=== PATIENT | female | born 1965 | race Caucasian/White ===

== ENCOUNTER 2019-08-26 08:08 | Inpatient (IN) | payer MEDICAID, OTHER ==
[~2019-08-26] VITALS: Ht 180.3 cm; Wt 136.1 kg
--- NOTE | 2019-08-26 08:25 | NUR ---
PATIENT IN ROOM 5. SHE IS AWAKE AND ALERT. C/O ABDOMINAL PAIN.
[2019-08-26] MEDS ORDERED: HYDROMORPHONE 1 MG/1 ML DISP.SYRIN IV ONE ×2 (08:30→10:30)
[2019-08-26] MEDS ORDERED: ONDANSETRON 4 MG/2 ML VIAL IV ONE (08:30)
[2019-08-26] MEDS ORDERED: ONDANSETRON 4 MG/2 ML VIAL ONE (08:40)
[2019-08-26] MEDS ORDERED: HYDROMORPHONE 1 MG/1 ML DISP.SYRIN ONE ×2 (08:40→10:26)
[2019-08-26 08:57] LABS: BASOPHILS # (AUTO) 0.1 K/uL (0.0-8.0); BASOPHILS % (AUTO) 0.7 % (0.0-2.0); EOSINOPHILS % (AUTO) 0.3 % (0.0-7.0); HEMATOCRIT 39.1 % (31.2-41.9); HEMOGLOBIN 13.1 g/dL (10.9-14.3); LYMPHOCYTES # (AUTO) 1.1 K/uL (20.0-40.0); LYMPHOCYTES % (AUTO) 7.9 % (20.5-51.5); MEAN CORPUSCULAR HEMOGLOBIN 27.2 uug (24.7-32.8); MEAN CORPUSCULAR HGB CONC 34 g/dL (32.3-35.6); MEAN CORPUSCULAR VOLUME 81.3 fL (75.5-95.3); MONOCYTES # (AUTO) 0.5 K/uL (2.0-10.0); MONOCYTES % (AUTO) 3.8 % (0.0-11.0); NEUTROPHILS # (AUTO) 12.4 K/uL (1.8-8.9); NEUTROPHILS % (AUTO) 87.3 % (38.5-71.5); PLATELET COUNT (AUTO) 303 K/uL (179-408); RED BLOOD CELL COUNT(AUTO) 4.81 MIL/uL (3.63-4.92); WHITE BLOOD COUNT (AUTO) 14.2 K/uL (3.8-11.8)
[2019-08-26 08:58] LABS: CREATININE 0.8 mg/dL (0.6-1.3); POTASSIUM 3.7 mmol/L (3.5-5.1)
[2019-08-26 09:04] LABS: BILIRUBIN,DIRECT 0.2 mg/dL (0.0-0.2); BILIRUBIN,TOTAL 0.8 mg/dL (0.2-1.0)
[2019-08-26 09:05] LABS: TOTAL PROTEIN, SERUM 7.2 g/dL (6.4-8.2)
[2019-08-26] MEDS ORDERED: IV NORMAL SALINE 1000 ML BAG IV ONE (09:15)
[2019-08-26 09:20] LABS: *BILIRUBIN,URIN NEGATIVE (NEGATIVE); *CLARITY,URINE CLEAR (CLEAR); *COLOR,URINE YELLOW (YELLOW); *KETONES,URINE NEGATIVE (NEGATIVE); *UROBILINOGEN,URINE 0.2 E.U./dl (NORMAL); LEUKOCYTE ESTERASE ,URINE NEGATIVE (NEGATIVE); NITRITE, URINE NEGATIVE (NEGATIVE); UGLUCOSE NEGATIVE (NEGATIVE)
[2019-08-26 09:30] LABS: *BLOOD, URINE NEGATIVE (NEGATIVE)
--- NOTE | 2019-08-26 09:40 | NUR ---
CALL FOR BED DONE, WAITING FOR CALL BACK FR [employer] FOR BED AVAILABILITY
--- NOTE | 2019-08-26 09:55 | NUR ---
PATIENT STATES PAIN AND NAUSEA HAVE DIMINISHED.
[2019-08-26] MEDS ORDERED: LEVOFLOXACIN 500 MG/D5W 100ML PIGGYBACK IV ONE (10:30)
[2019-08-26] MEDS ORDERED: METRONIDAZOLE 500 MG/NS 100 ML PIGGYBACK IV ONE (10:30)
--- NOTE | 2019-08-26 10:33 | NUR ---
PATIENT AWARE OF PENDING ADMISSION TO [facility]. REPORT GIVEN TO MIKHAIL SANDOVAL. PATIENT REMAINS NPO.
[2019-08-26] MEDS ORDERED: METRONIDAZOLE 500 MG/NS 100ML 100 ML IV ONE (10:35)
--- NOTE | 2019-08-26 10:47 | NUR ---
STEPHANIE STARTED IN ER. LEVAQUIN WILL BE RE-ORDERD BY FREIDA LEE ON [facility]LO[facility]. MIKHAIL SANDOVAL AWARE.
--- NOTE | 2019-08-26 10:48 | NUR ---
PaTIENT STATES NAUSEA HAS DIMINISHED.
[2019-08-26 11:21] VITALS: BP 130/75
[2019-08-26 11:45] VITALS: BP 130/75
[2019-08-26] MEDS ORDERED: ONDANSETRON 4 MG/2 ML VIAL IV PRN (11:45)
[2019-08-26] MEDS ORDERED: MAGNESIUM HYDROXIDE 30 ML LIQUID UDC PO PRN (11:45)
[2019-08-26] MEDS ORDERED: PIPERACILLIN SODIUM/TAZOBACTAM 3.375 G in IV DEXTROSE 5% 50 ML IV SCH (12:00)
[2019-08-26] MEDS: IV NS 1000 ML 1,000 ML IV PRN (15:21)
[2019-08-26] MEDS: CIPROFLOXACIN IV 400 MG in PREMIXED 1 EACH IV SCH (15:21)
[2019-08-26 15:30] VITALS: BP 118/54
[2019-08-26] MEDS: MORPHINE SULFATE 2 MG/1 ML DISP.SYRIN IV PRN ×2 (16:34→20:50)
[2019-08-26] MEDS: METRONIDAZOLE 500 MG/NS 100ML 500 MG in PREMIXED 1 EACH IV SCH ×2 (18:23→21:14)
--- NOTE | 2019-08-26 19:50 | NUR ---
RECEIVED PT AWAKE, ALERT AND ORIENTEDX4. PT IN NO ACUTE DISTRESS. IV INTACT. SAFETY AND COMFORT PROVIDED. PAIN MANAGEMENT DONE. WILL CONTINUE TO MONITOR.
[2019-08-26 22:14] VITALS: BP 140/74
[2019-08-27] MEDS: ZOLPIDEM 5 MG TABLET PO PRN (00:43)
[2019-08-27] MEDS: ACETAMINOPHEN 325 MG TABLET PO PRN (00:43)
[2019-08-27] MEDS: CIPROFLOXACIN IV 400 MG in PREMIXED 1 EACH IV SCH ×2 (00:44→12:09)
[2019-08-27 05:12] VITALS: BP 103/53
--- NOTE | 2019-08-27 05:20 | NUR ---
PT SLEPT INTERMITTENTLY. PT IN NO ACUTE DISTRESS. IV INTACT. PT GIVEN MORPHINE AT 205H FOR ABDOMINAL PAIN. PT TOLERATED IT WELL. PRESCRIBED MEDICATION GIVEN AND PT TOLERATED IT WELL. INFORMED CONSENT SIGNED. PREOPCHECKLIST STARTED. ALL NEEDS ARE MET. WILL ENDORSE TO INCOMING NURSE FOR CONTINUITY OF CARE.
[2019-08-27] MEDS: METRONIDAZOLE 500 MG/NS 100ML 500 MG in PREMIXED 1 EACH IV SCH ×3 (05:33→22:20)
[2019-08-27 06:37] LABS: BASOPHILS % (AUTO) 0.4 % (0.0-2.0); EOSINOPHILS # (AUTO) 0.1 K/uL (0.0-0.7); EOSINOPHILS % (AUTO) 0.4 % (0.0-7.0); HEMATOCRIT 36.4 % (31.2-41.9); HEMOGLOBIN 12.1 g/dL (10.9-14.3); LYMPHOCYTES # (AUTO) 1.3 K/uL (20.0-40.0); LYMPHOCYTES % (AUTO) 10.1 % (20.5-51.5); MEAN CORPUSCULAR HEMOGLOBIN 27.3 uug (24.7-32.8); MEAN CORPUSCULAR HGB CONC 33 g/dL (32.3-35.6); MEAN CORPUSCULAR VOLUME 82.3 fL (75.5-95.3); MONOCYTES # (AUTO) 1.1 K/uL (2.0-10.0); MONOCYTES % (AUTO) 8.2 % (0.0-11.0); NEUTROPHILS # (AUTO) 10.5 K/uL (1.8-8.9); NEUTROPHILS % (AUTO) 80.9 % (38.5-71.5); PLATELET COUNT (AUTO) 244 K/uL (179-408); RED BLOOD CELL COUNT(AUTO) 4.43 MIL/uL (3.63-4.92)
[2019-08-27 06:52] LABS: CREATININE 0.8 mg/dL (0.6-1.3); PHOSPHOROUS 2.7 mg/dL (2.5-4.9); POTASSIUM 3.7 mmol/L (3.5-5.1)
[2019-08-27] MEDS: HYDROCODONE/APAP 5-325MG TABLET PO PRN (08:26)
[2019-08-27 11:54] VITALS: BP 115/61
[2019-08-27 15:41] VITALS: BP 118/52
--- NOTE | 2019-08-27 16:28 | NUR ---
pt went to or via bed for surgery in stable condition
[2019-08-27] MEDS ORDERED: LIDOCAINE HCL 1% 20 ML VIAL ONE (16:40)
[2019-08-27] MEDS ORDERED: LIDOCAINE 2% (UROJET) 10 ML JELLY MM ONE (16:41)
[2019-08-27] MEDS ORDERED: BUPIVACAINE/EPI PF 0.25% 30 ML VIAL ONE (16:41)
[2019-08-27] MEDS ORDERED: FENTANYL CITRATE 250 MCG/5 ML AMPUL ONE (16:51)
[2019-08-27] MEDS ORDERED: ROCURONIUM BROMIDE 50 MG/5 ML VIAL ONE (16:52)
[2019-08-27] MEDS ORDERED: HYDROMORPHONE 2 MG/1 ML DISP.SYRIN ONE (17:39)
[2019-08-27 18:00] VITALS: BP 108/55
[2019-08-27] MEDS ORDERED: ONDANSETRON 4 MG/2 ML VIAL ONE (19:24)
[2019-08-27] MEDS: ATORVASTATIN 20 MG TABLET PO SCH (21:00)
--- NOTE | 2019-08-27 21:45 | NUR ---
Patient received into care from post-op Nurse Emilia via leonard. Patient is alert/oriented x3 and has no complaints of pain or discomfort at this time. IV fluids restarted on right forearm, which is patent/intract. Compression devices applied to legs and patient has been made comfortable in bed. All safety and fall precaution measures are in place. Call light and personal items are within reach at all times. Will continue to monitor and assess.
[2019-08-27] MEDS: MORPHINE SULFATE 2 MG/1 ML DISP.SYRIN IV PRN (22:22)
[2019-08-27] MEDS: IV NS 1000 ML 1,000 ML IV PRN (23:23)
[2019-08-28] MEDS: CIPROFLOXACIN IV 400 MG in PREMIXED 1 EACH IV SCH ×2 (00:46→12:14)
[2019-08-28] MEDS: MORPHINE SULFATE 2 MG/1 ML DISP.SYRIN IV PRN ×2 (02:18→06:13)
[2019-08-28 04:00] VITALS: BP 110/65
[2019-08-28] MEDS: METRONIDAZOLE 500 MG/NS 100ML 500 MG in PREMIXED 1 EACH IV SCH ×3 (05:10→22:34)
--- NOTE | 2019-08-28 06:00 | NUR ---
Patient slept intermittently throughout night with the use of her cpap. Complaints of pain were addressed with prescribed analgesics, with no adverse side effects noted/observed by nurse or verbalized by patient. All prescribed antibiotics were provided as ordered and tolerated well, with no adverse side effects noted/observed by nurse or verbalized by patient. Personal items and call light remain within reach of patient. All safety and fall precaution measures remain in place.
[2019-08-28 06:34] LABS: BILIRUBIN,TOTAL 0.6 mg/dL (0.2-1.0); CREATININE 0.8 mg/dL (0.6-1.3); TOTAL PROTEIN, SERUM 6.7 g/dL (6.4-8.2)
[2019-08-28 06:46] LABS: BASOPHILS % (AUTO) 0.2 % (0.0-2.0); HEMATOCRIT 36.8 % (31.2-41.9); HEMOGLOBIN 12.1 g/dL (10.9-14.3); LYMPHOCYTES # (AUTO) 0.7 K/uL (20.0-40.0); LYMPHOCYTES % (AUTO) 5.2 % (20.5-51.5); MEAN CORPUSCULAR HEMOGLOBIN 27.2 uug (24.7-32.8); MEAN CORPUSCULAR HGB CONC 33 g/dL (32.3-35.6); MONOCYTES # (AUTO) 0.7 K/uL (2.0-10.0); MONOCYTES % (AUTO) 5.2 % (0.0-11.0); NEUTROPHILS # (AUTO) 12.7 K/uL (1.8-8.9); NEUTROPHILS % (AUTO) 89.4 % (38.5-71.5); PLATELET COUNT (AUTO) 287 K/uL (179-408); RED BLOOD CELL COUNT(AUTO) 4.44 MIL/uL (3.63-4.92); WHITE BLOOD COUNT (AUTO) 14.2 K/uL (3.8-11.8)
[2019-08-28 07:29] LABS: MAGNESIUM 2.2 mg/dL (1.8-2.4); PHOSPHOROUS 2.6 mg/dL (2.5-4.9)
[2019-08-28 11:00] VITALS: BP 114/66
[2019-08-28] MEDS: HYDROCODONE/APAP 5-325MG TABLET PO PRN (11:02)
[2019-08-28 15:42] VITALS: BP 113/61
[2019-08-28] MEDS: ACETAMINOPHEN 325 MG TABLET PO PRN (15:56)
[2019-08-28] MEDS ORDERED: IRR STERIL WATER FOR IRR 1000 ML BOTTLE IR ONE (18:55)
[2019-08-28] MEDS ORDERED: GLYCOPYRROLATE 0.2 MG/ML VIAL IJ ONE (18:55)
[2019-08-28] MEDS ORDERED: NEOSTIGMINE METHYLSULFATE 10 MG/10 ML VIAL IM ONE (18:55)
[2019-08-28] MEDS ORDERED: ONDANSETRON 4 MG/2 ML VIAL IV ONE (18:55)
[2019-08-28] MEDS ORDERED: IV NORMAL SALINE 1000 ML BAG IV ONE ×2 (18:55)
[2019-08-28] MEDS ORDERED: LIDOCAINE-MPF 2% 5 ML VIAL IJ ONE (18:55)
[2019-08-28] MEDS ORDERED: SEVOFLURANE 250 ML BOTTLE IH ONE (18:55)
[2019-08-28] MEDS ORDERED: METOCLOPRAMIDE HCL 10 MG/2 ML VIAL IV ONE (18:55)
[2019-08-28] MEDS ORDERED: DEXAMETHASONE SOD PHOSPHATE 4 MG INJ IV ONE (18:55)
[2019-08-28] MEDS ORDERED: KETOROLAC TROMETHAMINE 30 MG INJ IM ONE (18:55)
[2019-08-28] MEDS ORDERED: PROPOFOL 200 MG/20 ML BOTTLE IV ONE (18:55)
--- NOTE | 2019-08-28 19:00 | NUR ---
PATIENT ALERT ORIENTED, NO COMPLAIN OF PAIN. PATIENT PASSING GAS, AMBULATE TO TOILET. PATIENT NENA MCGRATH PATENT DRAINING, CONT TO MONITOR.
[2019-08-28 20:00] VITALS: BP 116/66
[2019-08-28] MEDS: ATORVASTATIN 20 MG TABLET PO SCH (21:06)
[2019-08-28] MEDS: ZOLPIDEM 5 MG TABLET PO PRN (21:07)
[2019-08-29] MEDS: CIPROFLOXACIN IV 400 MG in PREMIXED 1 EACH IV SCH (02:01)
[2019-08-29 04:05] VITALS: BP 140/76
[2019-08-29] MEDS: HYDROCODONE/APAP 5-325MG TABLET PO PRN ×3 (04:54→18:25)
[2019-08-29] MEDS: METRONIDAZOLE 500 MG/NS 100ML 500 MG in PREMIXED 1 EACH IV SCH (05:21)
[2019-08-29 06:04] LABS: BASOPHILS # (AUTO) 0.1 K/uL (0.0-8.0); BASOPHILS % (AUTO) 0.6 % (0.0-2.0); EOSINOPHILS # (AUTO) 0.1 K/uL (0.0-0.7); EOSINOPHILS % (AUTO) 0.8 % (0.0-7.0); HEMATOCRIT 34.4 % (31.2-41.9); HEMOGLOBIN 11.5 g/dL (10.9-14.3); LYMPHOCYTES # (AUTO) 1.8 K/uL (20.0-40.0); LYMPHOCYTES % (AUTO) 19.6 % (20.5-51.5); MEAN CORPUSCULAR HEMOGLOBIN 27.8 uug (24.7-32.8); MEAN CORPUSCULAR HGB CONC 34 g/dL (32.3-35.6); MONOCYTES # (AUTO) 0.6 K/uL (2.0-10.0); MONOCYTES % (AUTO) 6.3 % (0.0-11.0); NEUTROPHILS # (AUTO) 6.7 K/uL (1.8-8.9); NEUTROPHILS % (AUTO) 72.7 % (38.5-71.5); PLATELET COUNT (AUTO) 295 K/uL (179-408); RED BLOOD CELL COUNT(AUTO) 4.15 MIL/uL (3.63-4.92); WHITE BLOOD COUNT (AUTO) 9.2 K/uL (3.8-11.8)
[2019-08-29 06:31] LABS: CREATININE 0.8 mg/dL (0.6-1.3); MAGNESIUM 2.1 mg/dL (1.8-2.4); PHOSPHOROUS 2.5 mg/dL (2.5-4.9); POTASSIUM 3.2 mmol/L (3.5-5.1)
--- NOTE | 2019-08-29 06:38 | NUR ---
PATIENT ALERT AWAKE ABLE TO MAKE NEEDS KNOWN, CONT ON PAIN MANAGEMENT OF ABDOMEN. PATIENT NENA MCGRATH PATENT DRAINING WITH SEROSANGUINEOUS FLUID IN MODERATE AMOUNT WITH SMALL SLING OF CLOTS. PATIENT ASSISTED WITH TOILETING, AMBULATE TO TOILET. CONT TO MONITOR.
[2019-08-29] MEDS ORDERED: HOME MED MISCELLANEOUS XX SCH (11:00)
[2019-08-29] MEDS: FLUOXETINE HCL 20 MG CAPSULE PO SCH (11:40)
[2019-08-29] MEDS: MELOXICAM 7.5 MG TABLET PO SCH (11:40)
[2019-08-29] MEDS: ESOMEPRAZOLE MAGNESIUM 20 MG PO SCH (11:59)
[2019-08-29] MEDS: ESTRADIOL 1 MG TABLET PO SCH (11:59)
[2019-08-29 12:10] VITALS: BP 124/77
[2019-08-29] MEDS ORDERED: POTASSIUM CHLORIDE 20 MEQ TAB.PRT.SR PO ONE (12:30)
[2019-08-29] MEDS: CIPROFLOXACIN HCL 250 MG TABLET PO SCH (12:40)
[2019-08-29] MEDS: METRONIDAZOLE 500 MG TABLET PO SCH ×2 (13:14→21:56)
[2019-08-29 15:56] VITALS: BP 134/67
--- NOTE | 2019-08-29 18:40 | NUR ---
Patient alert and oriented, ambulatory with SBA. Pain managed with PRN [place] 5. No reports of nausea or vomiting, tolerating diet. Use of incentive spirometer encouraged, proper technique demonstrated. Patient ambulating frequently. Lap sites intact, clear skin surrounding area. WILL drain to right side of abdomen, serous output recorded. Continues on PO antibiotics.End of shift chart check done, will endorse care to oncoming shift.
[2019-08-29 19:45] VITALS: BP 125/71
--- NOTE | 2019-08-29 20:30 | NUR ---
PATIENT ALERT ORIENTED, NO SOB NO CHEST PAIN. PATIENT AMBULATE TO BATHROOM FOR BLADDER ELIMINATIONS, WILL STILL DRAINING WITH PALE YELLOW COLOR FLUIDS SMALL AMOUNT. PATIENT CONTINUE ON PAIN MANAGEMENT DUE PUNCTURE WOUNDS OF THE ABDOMEN. PATIENT HAS BOWEL MOVEMENT ACCORDING TO PATIENT. CONT ON PO ANTIBIOTICS.
[2019-08-29] MEDS: ATORVASTATIN 20 MG TABLET PO SCH (20:47)
[2019-08-29] MEDS: ZOLPIDEM 5 MG TABLET PO PRN (21:57)
[2019-08-30] MEDS: CIPROFLOXACIN HCL 250 MG TABLET PO SCH ×2 (01:10→14:25)
[2019-08-30] MEDS: HYDROCODONE/APAP 5-325MG TABLET PO PRN (03:35)
[2019-08-30 04:05] VITALS: BP 150/77
--- NOTE | 2019-08-30 05:49 | NUR ---
PATIENT ASLEEP BUT AROUSABLE, NO SOB NO CHEST PAIN. PATIENT CONTINUE ON PAIN MANAGEMENT OF ABDOMINAL. PATIENT MIN ASSIST WITH TOILETING. PATIENT TOLERATE PO ANTIBIOTICS, NO ADVERSE REACTION NOTED, WILL PATENT DRAINING WITH PALE YELLOW DRAINAGE, CONT TO MONITOR.
[2019-08-30 06:00] LABS: CREATININE 0.8 mg/dL (0.6-1.3); POTASSIUM 3.8 mmol/L (3.5-5.1)
[2019-08-30] MEDS: METRONIDAZOLE 500 MG TABLET PO SCH ×2 (06:41→14:25)
[2019-08-30] MEDS: FLUOXETINE HCL 20 MG CAPSULE PO SCH (08:41)
[2019-08-30] MEDS: ESTRADIOL 1 MG TABLET PO SCH (08:41)
[2019-08-30] MEDS: MELOXICAM 7.5 MG TABLET PO SCH (08:41)
[2019-08-30] MEDS: ESOMEPRAZOLE MAGNESIUM 20 MG PO SCH (08:41)
[2019-08-30 12:06] VITALS: BP 129/83
--- NOTE | 2019-08-30 12:53 | NUR ---
FREIDA sorensen removed Eric Waterman drain. Will assess site and dressing. Pt. to be d/cd.
--- NOTE | 2019-08-30 15:19 | NUR ---
pt discharged home self care. Friend picked pt up leaving by private car. IV band removed. Id band removed. all belongings with pt. pt filled out authorization to release form. pt. stable.
== END 2019-08-30 15:17 | disposition home or self-care (01) | DRG 418 ==
LOC: ER 08:08 → MEDSURG3 10:27
PROVIDERS: ADMIT Nurse Practitioner Acute Care; ATTEND Nurse Practitioner Acute Care
PROC: 0FT44ZZ Resection of Gallbladder, Percutaneous Endoscopic Approach (ICD-10-PCS; principal; 2019-08-27)
PROC: 0FB04ZX Excision of Liver, Percutaneous Endoscopic Approach, Diagnostic (ICD-10-PCS; principal; 2019-08-27)
DX: K80.11 Calculus of gallbladder with chronic cholecystitis with obstruction (principal); Z68.41 Body mass index [BMI] 40.0-44.9, adult; E87.1 Hypo-osmolality and hyponatremia; D68.59 Other primary thrombophilia; E66.01 Morbid (severe) obesity due to excess calories; G47.33 Obstructive sleep apnea (adult) (pediatric); E11.65 Type 2 diabetes mellitus with hyperglycemia; E78.5 Hyperlipidemia, unspecified; N95.1 Menopausal and female climacteric states; K42.9 Umbilical hernia without obstruction or gangrene; Z79.890 Hormone replacement therapy; K76.0 Fatty (change of) liver, not elsewhere classified; R94.5 Abnormal results of liver function studies; R16.2 Hepatomegaly with splenomegaly, not elsewhere classified
CPT/HCPCS: 36415; 71045; 76700; 78445; 83690; 83735; 84100; 85025; 85730; 86850; 86900; 86901; 88313-TC; 93005; A4217; A9537; G0378; J0744; J1100; J1170; J1885; J1956; J2270; J2405; J2710; J2765; J3010; J3490; J7030; J7040; L8699